=== PATIENT | female | born 1955 | race Hispanic/Latino ===

== ENCOUNTER 2018-01-05 07:06 | Day surgery (SDC) | payer BC ==
[2018-01-04 09:46] VITALS: BMI 21.2
--- NOTE | 2018-01-05 05:35 | HP ---
Copied To: Daisy Santiago MD Attending MD: Daisy Santiago MD REASON FOR ADMISSION: Left heart cath, possible angioplasty, abnormal stress test. BRIEF CLINICAL HISTORY: This is a 62-year-old female with past medical history significant for hypertension, hyperlipidemia, who had abnormal stress test, complaining of chest pain. Patient underwent stress test, abnormal. Patient is scheduled for elective cardiac cath, possible angioplasty. Patient denies any chest pain now. PAST MEDICAL HISTORY: Significant for hypertension, hyperlipidemia. SOCIAL HISTORY: Denies smoking. Denies any history of alcohol abuse. PAST SURGICAL HISTORY: Significant for history of breast surgery, history of facial surgery, history of breast implant in the past and the breast augmentation surgery. PREVIOUS CARDIAC WORKUP: As follows: Patient had echocardiogram in 11/08/2017 that showed ejection fraction of 75%, trace aortic regurgitation, moderate mitral regurgitation and mild tricuspid regurgitation, RV systolic pressure 23. Ejection fraction calculated at 75%. Patient had a stress test dated 11/02/2017. Patient walked on the treadmill 11 minutes and 32 seconds of Jose protocol and no chest pain noted, but nuclear scan shows abnormal SPECT myocardial perfusion study, partially reversible anteroseptal defect, suspicious for ischemia; however, cannot be ruled out. CURRENT MEDICATIONS: Patient is taking testosterone, AndroGel, aspirin, losartan, progesterone, [place] 3, multivitamins, selenium sulfide. ALLERGIES: NO KNOWN DRUG ALLERGIES. REVIEW OF SYSTEMS: As per HPI. PHYSICAL EXAMINATION: VITAL SIGNS: As follows, height of the patient 5 feet 5 inches, weight of the patient 128 pounds, body mass index 21.3 kg/sq m. HEENT: PERRLA, extraocular muscles intact. NECK: Supple. No carotid bruit or thyromegaly. CHEST: Clear to auscultation. HEART: S1, S2 regular. ABDOMEN: Soft. EXTREMITIES: Clubbing and cyanosis, negative. LABORATORY DATA: Blood workup pending. IMPRESSION: Hypertension, hyperlipidemia, abnormal stress test, suspicious for ischemia, so the patient is scheduled for elective cardiac cath, possible angioplasty. Blood workup pending. Risks, benefits, and alternatives discussed with patient. Patient agreed to proceed for cardiac catheterization. Further recommendations after cardiac catheterization. Thank you Dr. Belcher/Dr. Lima for providing us the opportunity in taking care of patient, Irina Zuluaga. We will update you after the cardiac catheterization. Daisy Santiago MD
[2018-01-05 07:42] LABS: INR 0.98; PARTIAL THROMBOPLASTIN TIME 31.5 Seconds (25.1-36.5); PROTHROMBIN TIME 11.3 SECONDS (9.4-12.5)
[2018-01-05 07:45] LABS: BLOOD UREA NITROGEN 8 mg/dL (7-21); CALCIUM 9.3 mg/dL (8.4-10.5); GFR NON-AFRICAN AMERICAN > 60
[2018-01-05 07:59] LABS: BASO # 0.01 K/mm3 (0.0-2.0); BASO % 0.3 % (0.0-3.0); EOS # 0.1 (0.0-0.7); EOS % 1.8 % (1.5-5.0); GRAN # 1.19 (1.4-6.5); GRAN % 36.4 % (50.0-68.0); HEMOGLOBIN 13.3 g/dL (12.0-16.0); LYMPH # 1.7 (1.2-3.4); MEAN CELL VOLUME 95.1 fl (80.0-105.0); MEAN CORPUSCULAR HEMOGLOBIN 32.6 pg (25.0-35.0); MEAN CORPUSCULAR HGB CONC 34.3 g/dl (31.0-37.0); MEAN PLATELET VOLUME 8.4 fl (7.0-11.0); MONO # 0.3 (0.1-0.6); MONO % 9.5 % (1.0-6.0); RBC 4.08 10^6/uL (3.5-6.1); RED CELL DISTRIBUTION WIDTH 13.2 % (11.5-14.5); WHITE BLOOD COUNT 3.3 10^3/ul (4.5-11.0)
[2018-01-05] MEDS ORDERED: Verapamil 2 ML ONE (10:02)
[2018-01-05] MEDS ORDERED: Iodixanol 320 MG/ML 200 ML BOTTLE IV ONE (10:03)
[2018-01-05] MEDS ORDERED: Iohexol 350mgl/ml 50 ML ONE (10:03)
[2018-01-05] MEDS ORDERED: Phenylephrine 10 mg/ml Inj ONE (10:03)
[2018-01-05] MEDS ORDERED: Nitroglycerin 50mg in D5W 50 MG/250 ML BOTTLE IV ONE (10:03)
--- NOTE | 2018-01-05 10:11 | CARD ---
APPROVED REPORT Date of service: 01/05/2018 EKG Measurement Heart [id number] NM [id number] <Conclusion> Sinus bradycardia Possible septal infarct, age undetermined
[2018-01-05] MEDS ORDERED: Midazolam 2 MG/2 ML VIAL ONE (10:29)
[2018-01-05] MEDS ORDERED: Sodium Chloride 0.9% 1,000 ML IV SCH (11:15)
[2018-01-05 11:41] VITALS: TEMP 97.6
[2018-01-05 13:45] VITALS: RESP 16
--- NOTE | 2018-01-05 14:15 | CPOSTOP ---
Copied To: Daisy Santiago MD Attending MD: Daisy Santiago MD DATE: 01/05/2018 CARDIOVASCULAR LAB POST PROCEDURE NOTE DICTATING PHYSICIAN: Daisy Santiago MD TECH ED/WOODSHOP TEACHER: Katelin solids control technician. TYPE OF ANESTHESIA: Moderate conscious sedation, total 2 mg of Versed and 100 mcg of fentanyl given. PRE-PROCEDURE DIAGNOSES: Unstable angina, abnormal stress test, chest pain. PROCEDURE PERFORMED: Left heart catheterization. FINDINGS: Nonobstructive coronary artery disease. FINAL DIAGNOSIS: Nonobstructive coronary artery disease. POST PROCEDURE CONDITION: The patient's condition is stable. VASCULAR ACCESS SITE: Right femoral artery. CLOSURE DEVICE: Angio-Seal. TOTAL RADIATION DOSE: 1342.52 milligray unit. TOTAL FLUORO TIME: 1.9 minute. Daisy Santiago MD MTDD
[2018-01-05 15:10] VITALS: BP 122/72; PULSE 55; O2SAT 98
--- NOTE | 2018-01-05 16:10 | CARD ---
APPROVED REPORT Date of service: 01/05/2018 Procedure(s) performed: Left Heart Catheterization HISTORY The patient is a 62 year-old female with a history of : most recent EF: 56%. (EF Method: RADIONUCLIDE), tobacco history() : The patient is a current smoker , who was c/o chest pain, SOB and had an abnormal stress test reversible anteroseptal defect suspicious for Ischemia. INDICATION The indication(s) include : positive stress test. CASE TECHNIQUE The patient was brought electively to the Cardiac Catheterization Laboratory in a fasting state and was prepped and draped in a sterile manner. The right femoral groin was infiltrated with 2% Lidocaine subcutaneous anesthesia. A 6FR GLIDESHEATH ACCESS KIT sheath was inserted into the right femoral artery without difficulty. Coronary angiography was performed using coronary diagnostic catheters. The left coronary system was accessed and visualized with a Diagnostic , 5F JL 4 CATH DXT 100 CM catheter. The right coronary system was accessed and visualized with a Diagnostic ,5F JR 4 CATH DXT 100 CM catheter. The left ventricle was accessed and visualized with a 5F PIGTAIL 145 CATH DXT 110 CM catheter. Left ventriculogram was performed in MENESES projection. Closure device was deployed with a 6 Fr Angio-Seal without any complications. The patient tolerated the procedure well and there were no complications associated with the procedure. Vessel Analysis The patient's coronary anatomy is right dominant. The left main coronary artery is a medium size vessel with intimal irregularities and without significant stenosis. The left main bifurcates to the left anterior descending and circumflex. The left anterior descending artery is a medium size vessel with diffuse calcification noted throughout this vessel and without significant stenosis. Mid L:ad Has myocardial bridge The first diagonal branch is a large size vessel with diffuse calcification noted throughout this vessel and without significant stenosis. The second diagonal branch is a small size vessel with diffuse calcification noted throughout this vessel and without significant stenosis. The circumflex artery is a small size vessel with diffuse calcification noted throughout this vessel and without significant stenosis. The first obtuse marginal branch is a small size vessel with diffuse calcification noted throughout this vessel and without significant stenosis. The right coronary artery is a large size vessel with diffuse calcification noted throughout this vessel and without significant stenosis. There is a 20-30% stenosis . The right posterior descending artery is a large size vessel with intimal irregularities and without significant stenosis. The right posterolateral branch is a medium size vessel with intimal irregularities and without significant stenosis. Left Ventricle The left ventricle is normal in size with hyperdynamic contractility. There was no cardiomyopathy. The left ventricular ejection fraction is estimated to be 75%. The left ventricular end diastolic pressure is 5-6 mmHg. There was no gradient across the aortic valve upon pullback. Conclusion Non obstructive CAD limited to RCA 20-30% stenosis. 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 Preserved Lv fx.EF-75%, EDP_5-6 ( hyperdynamic ventricle) Recommendations Smoking Cessation Aggressive Medical TherapyCardiac Risk Reduction Program May consider adding low dose beta tony as tolerated. CC; drs. Belcher / Clarence.
--- NOTE | 2018-01-05 16:17 | CPOSTOP ---
Copied To: Daisy Santiago MD Attending MD: Daisy Santiago MD DATE: 01/05/2018 CARDIOVASCULAR LAB POST PROCEDURE NOTE DICTATING PHYSICIAN: Daisy Santiago MD. WHITEWATER RAFTING GUIDE: Angela Castellanos, hvac technician residential. TYPE OF ANESTHESIA: Moderate conscious sedation. Total 2 mg of Versed and 100 of fentanyl given. Periodically started 1 mg of Versed, 50 of fentanyl. PROCEDURE PERFORMED: Left heart catheterization. FINDINGS: Nonobstructive coronary artery disease. FINAL DIAGNOSIS: Nonobstructive coronary artery disease. POST PROCEDURE CONDITION: Post procedure, the patient's condition is stable. VASCULAR ACCESS: Right femoral artery. CLOSURE DEVICE: Angio-Seal. TOTAL RADIATION DOSE: 1342.52 milligray unit. FLUORO TIME: 1.9 minutes. Daisy Santiago MD
== END 2018-01-05 15:45 | disposition home or self-care (01) ==
LOC: CATH 07:06
PROVIDERS: ATTEND Internal Medicine Cardiovascular Disease
DX: I25.10 Atherosclerotic heart disease of native coronary artery without angina pectoris (principal); E78.5 Hyperlipidemia, unspecified; I10 Essential (primary) hypertension; F17.200 Nicotine dependence, unspecified, uncomplicated; Z79.82 Long term (current) use of aspirin
CPT/HCPCS: 36415; 80048; 85025; 85610; 85730; 86850; 86900; 93005; 93458; 99152; C1760; C1769; J1644 ×2; J2250; J3010; J7030; J7040; Q9966